=== PATIENT | female | born 1960 | race African-American/Black ===

== ENCOUNTER 2021-01-21 14:08 | Emergency (ER) | payer MEDICAID ==
[~2021-01-21] VITALS: Ht 165.1 cm; Wt 86.2 kg
[2021-01-21 14:31] VITALS: BP 139/89
--- NOTE | 2021-01-21 14:55 | Emergency Room Report ---
History of Present Illness General Chief Complaint: General Complaint Source: Patient Present Illness HPI Disclaimer: Please note that this report is being documented using ivWatchON technology. This can lead to erroneous entry secondary to incorrect interpretation by the dictating instrument. HPI: 60-year-old female presents for rectal bleeding and right leg swelling. Patient states that today while showering she noted bleeding from the rectum. Was painless. Reports long history of constipation follows with gastroenterology. No prior history of hemorrhoids. Cannot really say how much blood there was. Has been feeling fatigued but denies presyncope, palpitations, lightheadedness. No history of coagulopathy per patient. Also complaining of painful and swollen upper calf on the right side. Denies injury. Denies numbness or tingling. Still able to ambulate with a steady gait. PMH: Reviewed PSH: Reviewed Allergies: Reviewed Social Hx: Reviewed Allergies: Coded Allergies: No Known Allergies (Unverified , 01/21/21) COVID-19 Screening Contact w/high risk pt: No Experienced COVID-19 symptoms?: No COVID-19 Testing performed SPINNER FRAME: No Nursing Documentation-PMH Hx Hypertension: Yes Review of Systems All Other Systems: negative except mentioned in HPI Physical Exam Vital Signs Date Time Temp Pulse Resp B/P (MAP) Pulse Ox O2 Delivery O2 Flow Rate FiO2 01/21/21 14:31 98.2 68 18 139/89 (106) 98 Room Air General: Awake and alert, no acute distress HEENT: NC/AT. EOMI. Cardiovascular: RRR. S1 and S2 normal. No murmur appreciated Resp: Normal work of breathing. No cough, wheezing or crackles appreciated Abdomen: Abdomen is soft, nondistended. Nontender Rectal: Small palpable internal hemorrhoid. Nontender. Bright red blood mixed with stool. No melena. Skin: Intact. No abrasions, laceration or rash over the exposed skin MSK: Normal tone and bulk. Moving all extremities. No obvious deformity. There is a tender swelling of the posterior aspect of the right upper calf and into the popliteal fossa. Nonpulsatile. No overlying skin changes. Neuro: Awake and alert. Mentating appropriately. Medical Decision Making Diagnostic Impression: Primary Impression: Santiago's cyst Additional Impression: Internal hemorrhoid ER Course 60-year-old female presenting with rectal bleeding and right lower extremity pain and swelling. Differential includes not limited to hemorrhoidal bleeding, diverticulosis, GI bleed, anal fissure, DVT, AV malformation, Santiago's cyst among others. Exam is most consistent with a internal hemorrhoid. No brisk bleeding noted. No anemia. Will follow up with her verify rep she is scheduled to see them soon. Ultrasound of the right lower extremity shows no DVT or other venous mathematically does show a Santiago's cyst. Likely the cause of her discomfort. She can follow-up with her PMD if it continues to bother her. Laboratory Tests Test 01/21/21 15:30 White Blood Count 5.7 K/UL (4.8-10.8) Red Blood Count 5.27 M/UL (4.20-5.40) Hemoglobin 13.8 G/DL (12.0-16.0) Hematocrit 42.6 % (37.0-47.0) Mean Corpuscular Volume 81 FL (80-99) Mean Corpuscular Hemoglobin 26.2 PG (27.0-31.0) L Mean Corpuscular Hemoglobin Concent 32.4 G/DL (32.0-36.0) Red Cell Distribution Width 15.4 % (11.6-14.8) H Platelet Count 141 K/UL (150-450) L Mean Platelet Volume 16.9 FL (6.5-10.1) H Neutrophils (%) (Auto) 53.9 % (45.0-75.0) Lymphocytes (%) (Auto) 35.1 % (20.0-45.0) Monocytes (%) (Auto) 5.6 % (1.0-10.0) Eosinophils (%) (Auto) 4.1 % (0.0-3.0) H Basophils (%) (Auto) 1.3 % (0.0-2.0) Prothrombin Time 11.0 SEC (9.30-11.50) Prothrombin Time INR 1.0 (0.9-1.1) Activated Partial Thromboplast Time 27 SEC (23-33) Sodium Level 142 MMOL/L (136-145) Potassium Level 3.8 MMOL/L (3.5-5.1) Chloride Level 106 MMOL/L (98-107) Carbon Dioxide Level 27 MMOL/L (21-32) Anion Gap 9 mmol/L (5-15) Blood Urea Nitrogen 15 mg/dL (7-18) Creatinine 1.2 MG/DL (0.55-1.30) Estimated Glomerular Filtration Rate 55.8 mL/min (>60) Glucose Level 117 MG/DL (74-106) H Calcium Level 9.7 MG/DL (8.5-10.1) Last Vital Signs Date Time Temp Pulse Resp B/P (MAP) Pulse Ox O2 Delivery O2 Flow Rate FiO2 01/21/21 14:31 98.2 68 18 139/89 (106) 98 Room Air Disposition: HOME, SELF-CARE Condition: Stable Referrals: NON PHYSICIAN (PCP) Nithin Gardner MD Jan 21, 2021 14:55
--- NOTE | 2021-01-21 15:41 | NUR ---
Note delores in EDM - 01/21/21 at 1544 by LESLIE Patient presents to ER for rectal bleeding and swelling to right leg. Reports that she saw bleeding for the first time today while showering. Has a long history of constipation. Patient states that today while showering she noted bleeding from the rectum. Was painless. Reports long history of constipation follows with gastroenterology. No prior history of hemorrhoids. Cannot really say how much blood there was. Has been feeling fatigued but denies presyncope, palpitations, lightheadedness. No history of coagulopathy per patient. Also complaining of painful and swollen upper calf on the right side. Denies injury. Denies numbness or tingling. Still able to ambulate with a steady gait.
--- NOTE | 2021-01-21 15:45 | NUR ---
Patient presents to ER for rectal bleeding and swelling to right leg. Reports that she saw bleeding for the first time today while showering. Has a long history of constipation. Patient states that today while showering she noted bleeding from the rectum. Does not have a history of hemorrhoids.
[2021-01-21 15:51] LABS: BASOPHILS % (AUTO) 1.3 % (0.0-2.0); EOSINOPHILS % (AUTO) 4.1 % (0.0-3.0); HEMATOCRIT 42.6 % (37.0-47.0); HEMOGLOBIN 13.8 G/DL (12.0-16.0); LYMPHOCYTES % (AUTO) 35.1 % (20.0-45.0); MEAN CORPUSCULAR VOLUME 81 FL (80-99); MONOCYTES % (AUTO) 5.6 % (1.0-10.0); NEUTROPHILS % (AUTO) 53.9 % (45.0-75.0); PLATELET COUNT 141 K/UL (150-450); RED BLOOD COUNT 5.27 M/UL (4.20-5.40); RED CELL DISTRIBUTION WIDTH 15.4 % (11.6-14.8); WHITE BLOOD COUNT 5.7 K/UL (4.8-10.8)
[2021-01-21 15:56] LABS: CALCIUM 9.7 MG/DL (8.5-10.1); CREATININE 1.2 MG/DL (0.55-1.30); POTASSIUM 3.8 MMOL/L (3.5-5.1)
--- NOTE | 2021-01-21 16:24 | Diagnostic Imaging Report ---
Indication: Right leg pain Technique: Grayscale and duplex images of the right lower extremity veins Comparison: None Findings: On the right, grayscale and duplex images demonstrate no evidence of intraluminal thrombus. Normal phasic Doppler waveforms, demonstrating normal augmentation response and no evidence of valvular insufficiency. Greater saphenous vein(s) and tibial veins are patent. Normal compressibility. There is a cyst in the popliteal fossa Impression: Negative for evidence of lower extremity deep venous thrombosis bilaterally Popliteal fossa cyst, most likely a Santiago's cyst incidentally noted
== END 2021-01-21 16:10 | disposition home or self-care (01) ==
LOC: EMR 14:32
DX: M71.21 Synovial cyst of popliteal space [Baker], right knee (principal); I10 Essential (primary) hypertension; K64.8 Other hemorrhoids
CPT/HCPCS: 36415; 80048; 85025; 85610; 85730; 93971; Z7502; 99284

== ENCOUNTER 2021-02-05 11:26 | Emergency (ER) | payer MEDICAID ==
--- NOTE | 2021-02-05 12:20 | NUR ---
called no answer
--- NOTE | 2021-02-05 12:30 | NUR ---
called no answer
--- NOTE | 2021-02-06 06:27 | Emergency Room Report ---
History of Present Illness General Chief Complaint: To Be Triaged Present Illness Allergies: Coded Allergies: No Known Allergies (Unverified , 01/21/21) COVID-19 Screening Contact w/high risk pt: No Experienced COVID-19 symptoms?: No Nursing Documentation-PMH Hx Hypertension: Yes Medical Decision Making Diagnostic Impression: Primary Impression: LWBS ER Course Patient left without being seen Status: unchanged Disposition: LEFT W/OUT BEING SEEN Condition: Unknown Referrals: [facility],REFERRING (PCP) En Mueller MD Feb 06, 2021 06:27
== END 2021-02-05 13:00 | disposition left against medical advice (07) ==
LOC: EMR 12:25
DX: Z53.21 Procedure and treatment not carried out due to patient leaving prior to being seen by health care provider (principal); I10 Essential (primary) hypertension